=== PATIENT | male | born 1950 | race Caucasian/White ===

== ENCOUNTER 2020-12-04 10:40 | Inpatient (IN) | payer OTHER, MEDICARE ==
[~2020-12-04] VITALS: Ht 188 cm; Wt 80.3 kg
[~2020-12-04 10:40] MED LIST: ADVIL; ALEVE; AMLODIPINE BESYL5 MG PO; BENICAR40 MG PO; PRAVASTATIN SOD40 MG PO; PRILOSEC OTC20 MG PO
[2020-12-04] MEDS ORDERED: SODIUM CHLORIDE 0.9% 1000ML 1,000 ML IV STA (10:44)
[2020-12-04] MEDS ORDERED: PANTOPRAZOLE 40 MG 10ML VIAL IV STA (10:44)
[2020-12-04] MEDS ORDERED: ASPIRIN 81 MG CHEW TAB PO STA (10:44)
[2020-12-04 10:57] LABS: BASOPHILS % 0.4 % (0.0-1.0); EOSINOPHILS % 0.3 % (0.0-6.0); HEMATOCRIT 43.2 % (38.2-49.6); HEMOGLOBIN 14.6 g/dL (14.0-18.0); LYMPHOCYTES # (AUTO) 1.3 (1.0-3.2); MEAN CORPUSCULAR HEMOGLOBIN 30.4 pg (28-32); MEAN CORPUSCULAR HGB CONC 33.8 g/dL (31-35); MONOCYTES # (AUTO) 0.7 (0.2-0.8); MONOCYTES % 10.2 % (4.4-11.3); NEUTROPHILS # (AUTO) 4.9 (2.1-6.9); NEUTROPHILS % 69.8 % (38.7-80.0); PLATELET COUNT 257 x10e3/uL (140-360); RED CELL DISTRIBUTION WIDTH 12.1 % (11.7-14.4)
[2020-12-04 11:00] LABS: CLARITY,URINE CLEAR (CLEAR); COLOR,URINE YELLOW (YELLOW); KETONES,URINE NEGATIVE (NEGATIVE); LEUKOCYTE ESTERASE ,URINE SMALL (NEGATIVE); NITRITE,URINE NEGATIVE (NEGATIVE); PROTEIN,URINE DIPSTICK NEGATIVE (NEGATIVE); URINE UROBILINOGEN 0.2 mg/dL (0.2 - 1)
[2020-12-04] MEDS ORDERED: LOSARTAN POTAS100 MG PO (11:06)
[2020-12-04] MEDS ORDERED: AMLODIPINE BESY10 MG PO (11:06)
[2020-12-04] MEDS ORDERED: CLOPIDOGREL75 MG PO (11:06)
[2020-12-04] MEDS ORDERED: ALBUTEROL1.25 MG/3 INH (11:06)
[2020-12-04 11:09] LABS: INR 0.9; PROTHROMBIN TIME 12.7 seconds (11.9-14.5)
[2020-12-04 11:10] LABS: BACTERIA,URINE RARE /HPF; PARTIAL THROMBOPLASTIN TIME 29.2 seconds (23.8-35.5); RBC,URINE 0-5 /HPF (0-5)
[2020-12-04 11:17] LABS: ALANINE AMINOTRANSFERASE 22 IU/L (0-55); ALBUMIN 3.9 g/dL (3.5-5.0); ALBUMIN/GLOBULIN RATIO 1.1 (0.8-2.0); ALKALINE PHOSPHATASE 63 IU/L (40-150); ANION GAP 12.9 mmol/L (8-16); BLOOD UREA NITROGEN 8 mg/dL (7-26); BUN/CREATININE RATIO 12 (6-25); CALCIUM 8.9 mg/dL (8.4-10.2); CARBON DIOXIDE 25 mmol/L (22-29); CHLORIDE 97 mmol/L (98-107); CREATINE KINASE 47 IU/L (30-200); CREATININE, SERUM 0.67 mg/dL (0.72-1.25); EST GLOMERULAR FILTRATION RATE > 60 ML/MIN (60-); GLUCOSE 102 mg/dL (74-118); MAGNESIUM 2.1 MG/DL (1.3-2.1); POTASSIUM 3.9 mmol/L (3.5-5.1); SODIUM 131 mmol/L (136-145)
[2020-12-04] MEDS ORDERED: MULTIVITAMINS- 12 INJECTION 10 ML, FOLIC ACID MDV 5 MG, THIAMINE HCL INJ 100 MG in SODI... IV ONE (11:30)
[2020-12-04] MEDS ORDERED: MORPHINE SULFATE INJ 2 MG/ML SYR IV PRN (11:45)
[2020-12-04] MEDS ORDERED: ONDANSETRON HCL INJ 2MG/ML 2ML 2 MG/ML VIAL IV PRN (11:45)
[2020-12-04] MEDS ORDERED: ALBUTEROL/IPRATROPIUM 3 ML NEB NEB PRN (11:45)
[2020-12-04] MEDS: MULTIVITAMINS- 12 INJECTION 10 ML, FOLIC ACID MDV 5 MG, THIAMINE HCL INJ 100 MG in SODI... IV ONE ×2 (13:19→14:00)
[2020-12-04 14:27] VITALS: BP 167/87
[2020-12-04] MEDS ORDERED: LIPITOR10 MG PO (15:33)
[2020-12-04 16:13] VITALS: BP 167/80
[2020-12-04 18:43] LABS: CREATINE KINASE MB 0.8 ng/mL (0-5.0)
[2020-12-04 20:00] VITALS: BP 123/82
[2020-12-04] MEDS: LORAZEPAM INJ 2 MG/ML VIAL IV PRN (20:32)
[2020-12-04] MEDS ORDERED: FAMOTIDINE 20 MG/2 ML VIAL IV SCH (21:00)
[2020-12-04] MEDS ORDERED: PREDNISONE 20 MG TAB PO ONE (22:00)
[2020-12-05] VITALS (9 sets, daily range): BP systolic 114–140; BP diastolic 71–89
[2020-12-05] MEDS ORDERED: PREDNISONE 20 MG TAB PO ONE ×2 (04:00→10:00)
[2020-12-05 06:00] LABS: BASOPHILS % 0.2 % (0.0-1.0); HEMATOCRIT 41.9 % (38.2-49.6); HEMOGLOBIN 14.4 g/dL (14.0-18.0); LYMPHOCYTES # (AUTO) 0.7 (1.0-3.2); LYMPHOCYTES % 12.1 % (18.0-39.1); MEAN CORPUSCULAR HEMOGLOBIN 30.5 pg (28-32); MEAN CORPUSCULAR HGB CONC 34.4 g/dL (31-35); MEAN CORPUSCULAR VOLUME 88.8 fL (81-99); MONOCYTES # (AUTO) 0.2 (0.2-0.8); MONOCYTES % 4.3 % (4.4-11.3); NEUTROPHILS # (AUTO) 4.6 (2.1-6.9); PLATELET COUNT 242 x10e3/uL (140-360); RED BLOOD COUNT 4.72 x10e6/uL (4.3-5.7); RED CELL DISTRIBUTION WIDTH 11.9 % (11.7-14.4)
[2020-12-05 06:35] LABS: ALANINE AMINOTRANSFERASE 15 IU/L (0-55); ALBUMIN 3.6 g/dL (3.5-5.0); ALBUMIN/GLOBULIN RATIO 1.2 (0.8-2.0); ALKALINE PHOSPHATASE 61 IU/L (40-150); ANION GAP 12.3 mmol/L (8-16); BLOOD UREA NITROGEN 9 mg/dL (7-26); BUN/CREATININE RATIO 13 (6-25); CALCIUM 8.7 mg/dL (8.4-10.2); CARBON DIOXIDE 24 mmol/L (22-29); CHLORIDE 100 mmol/L (98-107); CHOL/HDL RATIO 2.2 (3.9-4.7); CHOLESTEROL 131 MD/DL (0-199); CREATININE, SERUM 0.68 mg/dL (0.72-1.25); EST GLOMERULAR FILTRATION RATE > 60 ML/MIN (60-); GLUCOSE 105 mg/dL (74-118); HDL CHOLESTEROL 59 MG/DL (40-60); LDL CHOLESTEROL 60 MG/DL (60-130); POTASSIUM 4.3 mmol/L (3.5-5.1); SODIUM 132 mmol/L (136-145); TRIGLYCERIDES 58 MG/DL (0-149)
[2020-12-05 07:46] LABS: CREATINE KINASE MB 0.8 ng/mL (0-5.0)
[2020-12-05] MEDS ORDERED: ONDANSETRON HCL 4 MG ORAL DISINTEGRATING TAB PO PRN (08:15)
[2020-12-05] MEDS ORDERED: ASPIRIN 81 MG ENTERIC COATED PO SCH (09:00)
[2020-12-05] MEDS: FAMOTIDINE 20 MG TAB PO SCH ×2 (09:33→20:01)
[2020-12-05] MEDS: LORAZEPAM INJ 2 MG/ML VIAL IV PRN (09:33)
[2020-12-05] MEDS ORDERED: DIPHENHYDRAMINE HCL 25 MG CAP PO ONE (10:00)
[2020-12-05] MEDS ORDERED: IOPAMIDOL 370 MG/ML 200 ML INFUS..BTL INJ ONE (10:07)
[2020-12-05] MEDS ORDERED: SODIUM CHLORIDE 0.9% 100 ML ONE (10:07)
[2020-12-05] MEDS ORDERED: ATORVASTATIN 20 MG TAB PO SCH (21:00)
[2020-12-05] MEDS ORDERED: ATORVASTATIN 40 MG TAB PO SCH (21:00)
[2020-12-06] VITALS: BP 128/71
[2020-12-06 04:00] VITALS: BP 122/79
[2020-12-06 08:06] VITALS: BP 137/84
[2020-12-06] MEDS: FAMOTIDINE 20 MG TAB PO SCH (08:30)
[2020-12-06 08:57] VITALS: BP 137/84
[2020-12-06] MEDS ORDERED: CLOPIDOGREL BISULFATE 75 MG TAB PO SCH (09:00)
[2020-12-06] MEDS ORDERED: ASPIRIN 81 MG CHEW TAB PO SCH (09:00)
[2020-12-06 12:21] VITALS: BP 134/82
[2020-12-06] MEDS ORDERED: ASPIRIN CHEW81 MG PO (14:59)
[2020-12-06 15:51] VITALS: BP 156/85
== END 2020-12-06 15:52 | disposition home or self-care (01) | DRG 68 ==
LOC: ER 11:30 → ERHOLD 12:39 → MED/SURG2 14:53
PROVIDERS: ADMIT Internal Medicine; ATTEND Internal Medicine
DX: I65.21 Occlusion and stenosis of right carotid artery (principal); I10 Essential (primary) hypertension; E78.5 Hyperlipidemia, unspecified; H54.7 Unspecified visual loss; Z91.013 Allergy to seafood
CPT/HCPCS: 36415; 70450; 70496; 70498; 70551; 71045; 78580; 80053; 80061; 80320; 81001; 82550; 82553; 83735; 83880; 84484; 85025; 85610; 85730; 93005; 93306; 99284; A9540; J2060; J3411; J7030; J7050; J7512; Q9967; U0002